=== PATIENT | female | born 1955 | race American Indian/Alaskan Native ===

== ENCOUNTER 2017-02-22 06:34 | Day surgery (SDC) | payer BC, OTHER ==
[~2017-02-22] VITALS: Ht 165.1 cm; Wt 105.2 kg
[~2017-02-22 06:34] MED LIST: ALLOPURINOL300 MG PO; CALCIUM + VITA1 EACH PO; CYCLOBENZAPRINE10 MG PO; HYDROCHLOROTH12.5 MG PO; HYDROCODON-ACE1 EAC8 PO; IBUPROFEN800 MG PO; LORATADINE10 MG PO; MELOXICAM15 MG PO; OMEGA 3 1,0001 EACH PO; OXYBUTYNIN CHLOR5 MG PO; SIMVASTATIN20 MG PO; TELMISARTAN20 MG PO
[2017-02-22] MEDS ORDERED: KLOR-CON 1010 MEQ PO (07:01)
[2017-02-22] MEDS ORDERED: ASPIRIN EC81 MG PO (07:02)
--- NOTE | 2017-02-22 08:02 | NUR ---
02/22/17 0802 Gracia Potter REPORT FROM ABISAI CHAUDHARI.
--- NOTE | 2017-02-22 11:11 | OR ---
[facility] [address] [place], [place] [address] Signed DATE OF OPERATION: 02/22/2017 SURGEON: Michael Weinstein MD PREOPERATIVE DIAGNOSES: 1. Personal history of colonic polyps (2010). 2. Colonic tattoo at 35 cm. 3. Diverticulosis. 4. Internal hemorrhoids. POSTOPERATIVE DIAGNOSES: 1. Minimal sigmoid diverticulosis. 2. Moderate internal hemorrhoids. 3. Melanosis coli. PROCEDURES: Colonoscopy without biopsy. ESTIMATED BLOOD LOSS: None. INDICATIONS: Iris is a 61-year-old female, who has been to us previously for 2 endoscopies. She had a villous adenomatous polyp removed at 35 cm. We consequently left a tattoo at that area. She has also had other adenomatous polyps removed as well. She also has left-sided diverticulosis along with moderate internal hemorrhoids. We had her back in 2011 and everything was fine including the area 35 cm. We asked her to follow up in 5 years. In the meantime, she says she is doing great. She has talked about her rotator cuff repairs and it sounds like she has lost a little weight. There is no family history of colon cancer or polyps. I gave her a booklet on colonoscopy and we looked at that together along with the risks including, but not limited to, gas bloating, crampy abdominal pain, bleeding, perforation, requiring surgery, and missed diagnosis. We also discussed the need for IV conscious sedation. She expressed understanding and wished to proceed. PROCEDURE NOTE: Iris was taken into our endoscopy suite and placed in the left lateral decubitus position. She was given divided doses 8 mg of Versed and 100 mcg of fentanyl. A digital rectal exam was performed and this was unremarkable. The adult colonoscope was introduced and advanced under direct visualization of the camera all the way into the cecum without difficulty. Her prep was quite good. The scope was then slowly withdrawn. She had the classic tiger striping and the colon consistent with melanosis coli. One has to wonder if some of the weight loss was attributed to laxatives. We saw no evidence of any polyps on this occasion. She does have a few diverticula in the sigmoid colon. On this occasion, we looked, but did not find a tattoo at 35 cm. The rectum was Electronically Signed By: MICHAEL WEINSTEIN MD 02/22/17 1111 PATIENT NAME: IRIS MONTALVO OPERATIVE REPORT DATE OF : 53 PHYSICIAN: MICHAEL WEINSTEIN MD REPORT #: [id number] REPORT IS CONFIDENTIAL AND NOT TO BE RELEASED WITHOUT AUTHORIZATION [address] [address] Signed unremarkable. Upon retroflexion of scope, she does have a moderate internal hemorrhoids. After this, the gas was suctioned out and the colonoscope removed. Iris tolerated the procedure quite well. RECOMMENDATIONS: Iris can follow up in 5 years for repeat colonoscopy. If she has used an herbal supplement or oral laxative, she needs to discontinue that because of the melanosis coli. She should switch over to Benefiber and/or MiraLAX. Michael Weinstein MD ALB/MODL /[id number] cc: LEIGHTON Real Electronically Signed By: MICHAEL WEINSTEIN MD 02/22/17 1111 PATIENT NAME: IRIS MONTALVO OPERATIVE REPORT DATE OF : 53 PHYSICIAN: MICHAEL WEISNTEIN MD REPORT #: [id number] REPORT IS CONFIDENTIAL AND NOT TO BE RELEASED WITHOUT AUTHORIZATION
[2017-04-04] MEDS ORDERED: ATORVASTATIN CA10 MG PO (02:14)
[2017-04-04] MEDS ORDERED: OMEPRAZOLE20 MG PO (02:14)
[2017-04-04] MEDS ORDERED: HYDROCHLOROTHIA25 MG PO (02:14)
[2017-04-04] MEDS ORDERED: CEPHALEXIN500 MG PO (02:29)
[2017-04-04] MEDS ORDERED: NORCO 5-325 TA1 EACH PO (02:29)
== END 2017-02-22 08:50 | disposition home or self-care (01) ==
LOC: OPS 06:34 → DS 06:34 → OPS 06:45 → DS 06:45 → OPS 08:50
PROVIDERS: Colon & Rectal Surgery
PROC: 0DJD8ZZ Inspection of Lower Intestinal Tract, Via Natural or Artificial Opening Endoscopic (ICD-10-PCS; principal; 2017-02-22 06:45)
DX: K64.8 Other hemorrhoids (principal); K57.30 Diverticulosis of large intestine without perforation or abscess without bleeding; I10 Essential (primary) hypertension; E78.00 Pure hypercholesterolemia, unspecified; M10.9 Gout, unspecified; E11.9 Type 2 diabetes mellitus without complications; M19.90 Unspecified osteoarthritis, unspecified site; E66.9 Obesity, unspecified; E55.9 Vitamin D deficiency, unspecified; K21.9 Gastro-esophageal reflux disease without esophagitis; J45.909 Unspecified asthma, uncomplicated; Z90.49 Acquired absence of other specified parts of digestive tract; Z86.010 Personal history of colon polyps; Z87.891 Personal history of nicotine dependence; Z88.8 Allergy status to other drugs, medicaments and biological substances; Z79.899 Other long term (current) drug therapy; Z68.38 Body mass index [BMI] 38.0-38.9, adult
CPT/HCPCS: 99152; 99153; J2250; J3010; J7120

== ENCOUNTER → 2017-04-04 | Emergency (ER) | payer BC, OTHER ==
[~2017-04-04] VITALS: Ht 165.1 cm; Wt 104.3 kg
[~2017-04-04] MED LIST changes: +ASPIRIN EC81 MG PO; +ATORVASTATIN CA10 MG PO; +CEPHALEXIN500 MG PO; +HYDROCHLOROTHIA25 MG PO; +KLOR-CON 1010 MEQ PO; +NORCO 5-325 TA1 EACH PO; +OMEPRAZOLE20 MG PO
== END ==
LOC: ED 02:00
DX: H66.92 Otitis media, unspecified, left ear (principal); J98.8 Other specified respiratory disorders; B34.9 Viral infection, unspecified; I10 Essential (primary) hypertension; E78.00 Pure hypercholesterolemia, unspecified; Z88.8 Allergy status to other drugs, medicaments and biological substances; Z79.899 Other long term (current) drug therapy; Z79.82 Long term (current) use of aspirin
CPT/HCPCS: 99283

== ENCOUNTER 2020-04-18 10:11 | Emergency (ER) | payer BC, OTHER ==
[~2020-04-18] VITALS: Ht 165.1 cm; Wt 103.0 kg
== END 2020-04-18 13:11 | disposition home or self-care (01) ==
LOC: ED 10:11
DX: R10.9 Unspecified abdominal pain (principal); M10.9 Gout, unspecified; I10 Essential (primary) hypertension; E78.00 Pure hypercholesterolemia, unspecified; Z88.8 Allergy status to other drugs, medicaments and biological substances; Z79.899 Other long term (current) drug therapy; Z79.82 Long term (current) use of aspirin
CPT/HCPCS: 80053; 81001; 83690; 85025; 96374; 99284-25; J1885; J7030

== ENCOUNTER 2023-12-30 09:50 | Emergency (ER) | payer OTHER, MEDICARE ==
[~2023-12-30] VITALS: Ht 162.6 cm; Wt 96.9 kg
[2023-12-30] MEDS ORDERED: LACTATED RINGER'S 1,000 ML IV ONE (10:00)
[2023-12-30] MEDS ORDERED: ondansetron HCL 4 MG/2 ML VIAL IV ONE (10:00)
[2023-12-30] MEDS ORDERED: HYDROmorphone HCL 1 MG/ML SYR IV ONE (10:00)
[2023-12-30 10:07] LABS: BASOPHILS 0.7 % (0-2); EOSINOPHILS 0.7 % (0-6); HEMATOCRIT 41.8 % (35.0-50.0); HEMOGLOBIN 14.5 g/dL (12.0-18.0); MCH 32.3 (27-36); MCHC 34.6 g/dl (30-36); MCV 93.2 fl (81-99); NEUTROPHILS 53.6 % (39-80); PLATELET COUNT 228 K/uL (140-440); RBC 4.48 M/ul (4.3-5.7); RDW 14.2 (10.5-15.0)
[2023-12-30 10:29] LABS: ALBUMIN 3.7 g/dL (3.4-5.0); ALBUMIN/GLOBULIN RATIO 1.09 (1.1-2.4); ALCOHOL, MEDICAL <3 ng/dL (<3); ALKALINE PHOSPHATASE 84 U/L (46-116); ALT (SGPT) 29 U/L (14-59); ANION GAP 12.3 (7-21); AST (SGOT) 24 U/L (15-37); BILIRUBIN, TOTAL 0.6 ng/dL (0.2-1.0); BUN/CREATININE RATIO 16.47 (6.0-28.6); CALCIUM 9.4 mg/dL (8.5-10.1); CARBON DIOXIDE 28 mmol/L (21-32); CHLORIDE 105 mmol/L (98-107); CREATINE KINASE 148 U/L (26-192); CREATININE, SERUM 0.85 mg/dL (0.55-1.02); GLOMERULAR FILTRATION RATE,EST 74 mL/min (>60); POTASSIUM 3.3 mmol/L (3.5-5.1); PROTEIN, TOTAL 7.1 g/dL (6.4-8.2); UREA NITROGEN 14 mg/dL (7-18)
[2023-12-30 10:36] LABS: ABO B; RH POSITIVE
[2023-12-30 10:37] LABS: ANTIBODY SCREEN NEGATIVE
[2023-12-30] MEDS ORDERED: LORazepam 2 MG/ML VIAL IV ONE (12:00)
--- NOTE | 2023-12-30 12:01 | EKG ---
[facility] [address] [facility] [place] [address] Signed Normal sinus rhythm Right bundle branch block Abnormal ECG No previous ECGs available Confirmed by Rupesh Loera MD ([id number]) on 12/30/2023 12:01:19 PM Electronically Signed By: RUPESH LOERA DO 12/30/23 1201 PATIENT NAME: MADELAINE MONTALVO Electrocardiogram DATE OF : 53 PHYSICIAN: URPESH LOERA DO REPORT #: [id number] REPORT IS CONFIDENTIAL AND NOT TO BE RELEASED WITHOUT AUTHORIZATION
[2023-12-30 12:25] LABS: BILIRUBIN, URINE NEGATIVE (negative); BLOOD/HGB, URINE TRACE-I (Negative); KETONE, URINE NEGATIVE (Negative); LEUK ESTERASE, URINE NEGATIVE (negative); NITRITE, URINE NEGATIVE (negative)
[2023-12-30 12:34] LABS: BACTERIA, URINE NONE SEEN /hpf (negative); CASTS, URINE NONE SEEN \\lpf; COLLECTION TYPE, URINE CLEAN CATCH; CRYSTALS, URINE NONE SEEN (0-1+); EPITHELIAL CELLS, URINE RARE /lpf (0-1+); REFLEX CULTURE, URINE No (No); WHITE BLOOD CELLS, URINE 0-1 /HPF (0-5)
[2023-12-30 12:47] LABS: AMPHETAMINES, URINE NEGATIVE (NEGATIVE); BARBITURATES, URINE NEGATIVE (NEGATIVE); BENZODIAZEPINE, URINE NEGATIVE (NEGATIVE); BUPRENORPHINE, URINE NEGATIVE (NEGATIVE); CANNABINOID, URINE POSITIVE (NEGATIVE); COCAINE, URINE NEGATIVE (NEGATIVE); ECSTASY, URINE NEGATIVE (NEGATIVE); FENTANYL, URINE NEGATIVE (NEGATIVE); METHADONE, URINE NEGATIVE (NEGATIVE); OPIATES, URINE NEGATIVE (NEGATIVE); OXYCODONE, URINE NEGATIVE (NEGATIVE); PHENCYCLIDINE, URINE NEGATIVE (NEGATIVE)
[2023-12-30] MEDS ORDERED: ATIVAN1 MG PO (13:24)
[2023-12-30 13:41] VITALS: BP 149/94
== END 2023-12-30 13:41 | disposition home or self-care (01) ==
LOC: ED 09:50
PROVIDERS: Emergency Medicine
DX: S20.219A Contusion of unspecified front wall of thorax, initial encounter (principal); F41.9 Anxiety disorder, unspecified; I10 Essential (primary) hypertension; V43.52XA Car driver injured in collision with other type car in traffic accident, initial encounter; Z96.651 Presence of right artificial knee joint; Z79.899 Other long term (current) drug therapy; Z79.82 Long term (current) use of aspirin
CPT/HCPCS: 36415; 70450; 71260; 72125; 74177; 80053; 80307; 81001; 82553; 83605; 84484; 85025; 86850; 86900; 86901; 93005; 93010; 99284-25; G0480; J1170; J2060; J2405; J7121; Q9967

== ENCOUNTER 2024-04-25 09:45 | Day surgery (SDC) | payer MEDICARE, OTHER ==
[2024-04-19 11:51] VITALS: BP 110/82
[~2024-04-25] VITALS: Ht 162.6 cm; Wt 89.5 kg
[~2024-04-25 09:45] MED LIST changes: +ATIVAN1 MG PO; +CEFAZOLIN SODIUM 2 GM/20 ML SYR IV SCH; +IBLOOD GLUCOSE TEST STRIP 1 EA TEST VI PRN; +LACTATED RINGER'S 1,000 ML IV SCH; +LIDOCAINE HCL 1% 5 ML SDV INJ ONE; +SLOW FE137 MG PO; +VIT C-ECHINACE1 EACH PO; +ZYRTEC10 M3 PO
[2024-04-25 10:01] VITALS: BP 138/98
[2024-04-25] MEDS ORDERED: CVS VITAMIN C PO (10:07)
[2024-04-25] MEDS ORDERED: propofoL 200 MG/20 ML VIAL ONE (10:46)
[2024-04-25] MEDS ORDERED: OXYMETAZOLINE HCL 30 ML BTL ONE (11:44)
--- NOTE | 2024-04-25 11:52 | NUR ---
1120-PT UPDATED ON SURGERY WAIT TIME. WARM BLANKET PROVIDED. NO OTHER NEEDS AT THIS TIME. CALL LIGHT WITHIN REACH.
--- NOTE | 2024-04-25 12:41 | NUR ---
04/25/24 1241 Cheryl Tracey 1207- PT ARRIVES TO THE PACU WITH AN ORAL AIRWAY IN PLACE ON 10L OF O2 VIA MASK. BREATHING IS EVEN AND UNLABORED. PT REQUIRED SOME ORAL SUCTIONING. LR INFUSING IN HER L WRIST. ALL MONITORS PUT IN PLACE. VSS. PT IS NONREACTIVE TO VERBAL AND TACTILE STIMULI. ABDOMEN IS SOFT AND NONDISTENDED. 1208- PT 02 IS DECREASED TO 6L VIA MASK. PT IS ABLE TO MAINTAIN O2 SATS IN THE HIGH 90S. 1212- PT WAKES AND IS ABLE TO FOLLOW DIRECTIONS. PT OPENS MOUTH AND ORAL AIRWAY IS REMOVED. O2 TURNED OFF AND REMOVED AT THIS TIME. PT READJUSTED IN THE BED AND HOB INCREASED. VSS. 1222- PT WAKES AND DENIES PAIN AND NAUSEA. PT REPORTS BEING COLD AND MORE WARM BLANKETS ARE APPLIED. PT ALSO REQUESTING TISSUES AND THOSE ARE PROVIDED. PT EASILY FALLS BACK TO SLEEP WITH NO APPARENT DISTRESS. 1238-PT WAKES TO VERBAL STIMULI. PLAN OF CARE DISCUSSED. PT IS AGREEABLE.
[2024-04-25 13:03] VITALS: BP 138/86
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
--- NOTE | 2024-04-26 14:59 | PATH ---
[facility] [address] [facility] [place], [place] [address] Signed SPECIMEN(S): A DUODENAL BULB BIOPSY SPECIMEN(S): B ANTRUM/PYLORUS BIOPSY SPECIMEN SOURCE: A. DUODENAL BULB BIOPSY B. ANTRUM/PYLORUS BIOPSY CLINICAL HISTORY: Epigastric pain, hiatal hernia, GERD, HTN, gout, gastritis FINAL PATHOLOGIC DIAGNOSIS: A. Duodenal bulb biopsy: - Benign duodenal mucosa with scant superficial epithelium present. - See comment. B. Antrum/pylorus biopsy: - Antral and proximal duodenal-type mucosa with reactive features and slight chronic inflammation. - Negative for evidence of Helicobacter organisms or significant pathologic duodenal-type epithelial changes. COMMENT: Part A: There is scant duodenal mucosa present. It is not clear if this is an artifact of sampling or a result of superficial epithelial erosion. There is no evidence of atypical epithelial features, however, assessment of villi for villous effacement and increased epithelial lymphocytes cannot be determined based on this sample. Clinical correlation is requested. JaydaVR:janae MICROSCOPIC EXAMINATION: Histologic sections of all submitted blocks are examined by light microscopy. These findings, together with the gross examination, support the pathologic diagnosis. GROSS DESCRIPTION: A. The specimen, labeled and designated "Sylvester, duodenal bulb biopsy," is received in formalin and consists of one fernandez soft tissue fragment, 0.3 cm. Entirely submitted in (A1). B. The specimen, labeled and designated "Sylvester, antrum/pylorus biopsy," is received in formalin and consists of one fernandez soft tissue fragment, 0.2 cm. Entirely submitted in (B1). PATIENT NAME: MADELAINE MONTALVO PATHOLOGY DATE OF : 53 REPORT #: [id number] PHYSICIAN: DARIN FRANKLIN PCP: ELMA RIVAS MD REPORT IS CONFIDENTIAL AND NOT TO BE RELEASED WITHOUT AUTHORIZATION [facility] [address] [place], [place] [address], [place] [address] Signed VB (under the direct supervision of a pathologist) The Gross Description was prepared using a voice recognition system. The report was reviewed for accuracy; however, sound-alike word errors, addition and/or deletions may occur. If there is any question about this report, please contact Client Services. PERFORMING LABORATORY: Technical component was performed by [facility], [address] [place] [address] (CLIA# [id number]). Professional interpretation was performed by [facility], [address] [place] [id number] (CLIA#: [id number]). Diagnostician: Romulo Staton MD Pathologist Electronically Signed 04/26/2024 Copies: ~ PATIENT NAME: MADELAINE MONTALVO PATHOLOGY DATE OF : 53 REPORT #: [id number] PHYSICIAN: [facility] PCP: ELMA RIVAS MD REPORT IS CONFIDENTIAL AND NOT TO BE RELEASED WITHOUT AUTHORIZATION
== END 2024-04-25 13:15 | disposition home or self-care (01) ==
LOC: DS 09:45
PROVIDERS: ATTEND Colon & Rectal Surgery
PROC: 0DB78ZX Excision of Stomach, Pylorus, Via Natural or Artificial Opening Endoscopic, Diagnostic (ICD-10-PCS; 2024-04-25)
PROC: 0DB68ZX Excision of Stomach, Via Natural or Artificial Opening Endoscopic, Diagnostic (ICD-10-PCS; principal; 2024-04-25 10:45)
DX: K29.70 Gastritis, unspecified, without bleeding (principal); K44.9 Diaphragmatic hernia without obstruction or gangrene; K21.9 Gastro-esophageal reflux disease without esophagitis; I10 Essential (primary) hypertension; M10.9 Gout, unspecified; M19.90 Unspecified osteoarthritis, unspecified site; E78.00 Pure hypercholesterolemia, unspecified; Z79.899 Other long term (current) drug therapy
CPT/HCPCS: 00813; 36415; 87077; J0690; J2704; J7121

== ENCOUNTER 2024-04-28 15:18 | Inpatient (IN) | payer OTHER, MEDICARE ==
[~2024-04-28] VITALS: Ht 162.6 cm; Wt 91.3 kg
[~2024-04-28 15:18] MED LIST changes: -CEFAZOLIN SODIUM 2 GM/20 ML SYR IV SCH; +CVS VITAMIN C PO; -IBLOOD GLUCOSE TEST STRIP 1 EA TEST VI PRN; -LACTATED RINGER'S 1,000 ML IV SCH; -LIDOCAINE HCL 1% 5 ML SDV INJ ONE
[2024-04-28] MEDS ORDERED: HYDROmorphone HCL 1 MG/ML SYR IV ONE ×2 (15:45→17:45)
[2024-04-28] MEDS ORDERED: PANTOPRAZOLE SODIUM 40 MG/10 ML VIAL IV ONE (15:45)
[2024-04-28] MEDS ORDERED: SODIUM CHLORIDE 0.9% 1,000 ML IV ONE (15:45)
[2024-04-28] MEDS ORDERED: ondansetron HCL 4 MG/2 ML VIAL IV PRN ×4 (15:45→21:45)
[2024-04-28 15:59] LABS: BASOPHILS 0.4 % (0-2); EOSINOPHILS 0.4 % (0-6); HEMATOCRIT 42.3 % (35.0-50.0); HEMOGLOBIN 14.6 g/dL (12.0-18.0); LYMPHOCYTES 18.2 % (24-44); MCH 31.9 (27-36); MCHC 34.5 g/dl (30-36); MCV 92.6 fl (81-99); MONOCYTES 2.8 % (0-12); NEUTROPHILS 78.2 % (39-80); PLATELET COUNT 187 K/uL (140-440); RBC 4.57 M/ul (4.3-5.7); RDW 13.6 (10.5-15.0)
[2024-04-28 16:16] LABS: ALBUMIN 3.9 g/dL (3.4-5.0); ALBUMIN/GLOBULIN RATIO 1.03 (1.1-2.4); ANION GAP 13.6 (7-21); BILIRUBIN, TOTAL 0.9 ng/dL (0.2-1.0); BUN/CREATININE RATIO 15.47 (6.0-28.6); CALCIUM 9.8 mg/dL (8.5-10.1); CREATININE, SERUM 0.84 mg/dL (0.55-1.02); POTASSIUM 3.6 mmol/L (3.5-5.1); PROTEIN, TOTAL 7.7 g/dL (6.4-8.2)
[2024-04-28] MEDS ORDERED: LORazepam 2 MG/ML VIAL IV ONE (18:00)
[2024-04-28] MEDS ORDERED: LACTATED RINGER'S 1,000 ML IV SCH ×3 (20:15→21:45)
[2024-04-28] MEDS ORDERED: PROCHLORPERAZINE EDISYLATE 10 MG/2 ML VIAL IV PRN ×3 (20:15→21:45)
[2024-04-28] MEDS ORDERED: HYDROmorphone HCL 1 MG/ML SYR IV PRN ×3 (20:15→21:45)
[2024-04-28] MEDS ORDERED: FAMOTIDINE 20 MG/ 2 ML VIAL IV SCH ×3 (21:00→21:36)
[2024-04-29] MEDS ORDERED: LORazepam 2 MG/ML VIAL IV ONE ×2 (06:45)
[2024-04-29] MEDS ORDERED: LIDOCAINE HCL 4% 50 ML BTL TOP ONE (07:00)
--- NOTE | 2024-04-29 08:19 | NUR ---
PATIENT ARRIVED TO MED SURG UNIT VIA STRETCHER. PATIENT AMBULATED TO BATHROOM. VOID IN TOLIET. PATIENT AMBULATED AND TRANSFERED INTO UNIT BED WITH 1 PA STAND BY ASSIST. ORIENTED TO ROOM AND CALL LIGHT WITHIN REACH.
[2024-04-29 08:23] VITALS: BP 149/79
[2024-04-29] MEDS ORDERED: FAMOTIDINE 20 MG/ 2 ML VIAL IV SCH ×2 (09:00)
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
--- NOTE | 2024-04-29 10:20 | NUR ---
PATIENT RESTING IN BED WITH EYES CLOSED. RESPRIATIONS EVEN AND UNLABORED. CALL LIGHT WITHIN REACH.
--- NOTE | 2024-04-29 11:35 | NUR ---
PATIENT RESTING IN BED WITH EYES CLOSED. DENIES ANY NEEDS AT THIS TIME CALL LIGHT WITHIN REACH.
--- NOTE | 2024-04-29 12:14 | NUR ---
PT IN ROOM WITH PATIENT AT THIS TIME.
--- NOTE | 2024-04-29 12:35 | NUR ---
TINTER PHOTOGRAPH STAFF IN ROOM WITH PATIENT AT THIS TIME.
--- NOTE | 2024-04-29 13:36 | NUR ---
PATIENT RESTING IN BED. IV SITE REMAINS PATENT AND WNL. IV FLUIDS INFUSING WITH NO ISSUES OR CONCERNS. PATIENT REPORTS HER ABD PAIN IS A 4/10 AT THIS TIME. SHE IS TOLLERATING CLEAR LIQUIDS AT THIS TIME. NO FURTHER NEEDS. CALL LIGHT WITHIN REACH.
[2024-04-29 14:04] VITALS: BP 123/74
--- NOTE | 2024-04-29 14:10 | NUR ---
PATIENT RESTING IN BED WITH FAMILY IN ROOM. PATIENT DENIES ANY NEEDS AT THIS TIME. CALL LIGHT WITHIN REACH.
--- NOTE | 2024-04-29 15:34 | NUR ---
RN SPOKE WITH MD ELIZALDE WHO ADVISES IT IS OKAY FOR PATIENT TO HAVE JELLO AT THIS TIME AND ADVACE TO FULL LIQUIDS.
--- NOTE | 2024-04-29 16:20 | NUR ---
PATIENT TOLLERATED EATING JELLO WITH NO ISSUES OR CONCERNS.
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
--- NOTE | 2024-04-29 17:45 | NUR ---
MD IN TO SEE PATIENT AT THIS TIME.
--- NOTE | 2024-04-29 18:15 | NUR ---
PATIENT RESTING IN BED WITH EYES CLOSED. RESPIRATIONS EVEN AND UNLABORED. CALL LIGHT WITHIN REACH.
[2024-04-29 18:18] VITALS: BP 143/79
[2024-04-29 19:18] VITALS: BP 143/79
--- NOTE | 2024-04-29 19:49 | NUR ---
Patient in bed resting, eyes closed, respirations even and non labored. Patient has no notable distress. Daughter at bedside. No needs at this time.
[2024-04-29 20:49] VITALS: BP 130/81
[2024-04-29] MEDS ORDERED: LORazepam 2 MG/ML VIAL IV SCH ×2 (21:00)
--- NOTE | 2024-04-29 21:08 | NUR ---
Patient up to void, alert/oriented x3, no acute distress. Patient reports head/throat and abd pain, 4/10. Patient passing flatus, bowel tones active x4 quadraunts, no nausea. Patient reports anxiety-admin scheduled dose of ativan and prn dilaudid 0.5mg iv. Patient denies further needs at this time, call light within reach.
[2024-04-29 21:36] VITALS: BP 130/81
[2024-04-30] VITALS (9 sets, daily range): BP systolic 107–142; BP diastolic 67–85
--- NOTE | 2024-04-30 02:00 | NUR ---
PATIENT CALLED. C/O STOMACH UPSET. SALTIME CRACKERS AND HOT DECAF TEA PROVIDED PER PATIENT. PATIENT SITTING AT THE EDGE OF THE BED. ALARM WAS SET ON FOR SAFETY. PATIENT IS SNACKING.
--- NOTE | 2024-04-30 02:10 | NUR ---
Patient reports nausea. Admin compazine 10mg slow iv push at this time. Patient denies further needs, call light within reach.
--- NOTE | 2024-04-30 05:14 | NUR ---
PT IV FLUIDS ALARMING, COMPLETE BAG, NEW IV FLUIDS BAG HUNG. IV FLUIDS CLEARED. PT RESTING DID NOT AWAKEN WHEN ENTER ROOM DURING CARES. ALLOWED PT TO SLEEP. CALL LIGHT WITHIN REACH.
--- NOTE | 2024-04-30 07:23 | NUR ---
REPORT FROM BINTA MONTOYA RN.
--- NOTE | 2024-04-30 08:14 | NUR ---
Patient has been ambulating hallways. No cares were requested.
--- NOTE | 2024-04-30 08:22 | NUR ---
MORNING ASSESSMENT IS COMPLETE. PATIENT DENIES NAUSEA, GIVEN SCHEDULED IV PEPCID, AND IS SITTING UP IN BED TO HAVE CLEAR LIQUID BREAKFAST. BILATERAL LOWER EXTREMITY 1+ EDEMA IS NOTED AND PATIENT REPORTS THIS IS CHRONIC. LUNGS ARE CLEAR, BOWEL TONES ARE ACTIVE. NO OTHER NEEDS AT THIS TIME.
--- NOTE | 2024-04-30 08:32 | NUR ---
DR. PELAEZ IN TO SEE PATIENT. PATIENT TO BE ADVANCED TO FULL LIQUID DIET. PATIENT DOES HAVE PRODUCTIVE COUGH AND IS AWARE.
--- NOTE | 2024-04-30 08:36 | NUR ---
PATIENT TO HAVE CHEST X-RAY TO R/O PNEUMONIA. PATIENT TO HAVE I/S.
--- NOTE | 2024-04-30 08:39 | NUR ---
PATIENT IS SALINE LOCKED.
--- NOTE | 2024-04-30 08:41 | NUR ---
INCENTIVE SPIROMETER INSTRUCTION TO PATIENT. PATIENT DEMONSTRATES ABILITY TO USE.
[2024-04-30] MEDS ORDERED: CEFTRIAXONE/SODIUM CHLORIDE 2 GM/100 ML PIGGYBACK IV SCH ×2 (09:15)
--- NOTE | 2024-04-30 09:36 | NUR ---
ATTEMPT TO COMPLETE ASSESSMENT. PATIENT DOES NOT WAKE. WILL RETURN LATER TODAY TO SPEAK WITH PATIENT.
--- NOTE | 2024-04-30 09:41 | NUR ---
IV ROCEPHIN INFUSING FOR 30 MINUTES. PATIENT IS SLEEPING WITH REGULAR RESPIRATIONS.
--- NOTE | 2024-04-30 11:11 | NUR ---
PATIENT IS SLEEPING WITH REGULAR RESPIRATIONS. NO NEEDS AT THIS TIME.
--- NOTE | 2024-04-30 11:16 | NUR ---
PATIENT IN BED AT THIS TIME. SPECIAL PROJECTS MANAGER ASSISTED PATIENT TO BATHROOM AND THEN BACK TO BED. CALL LIGHT WITHIN REACH, NO FURTHER NEEDS AT THIS TIME.
--- NOTE | 2024-04-30 11:42 | NUR ---
VISITED DURING SPIRITUAL CARE ROUNDS. PT SUPPORTED BY FAMILY MEMBER IN ROOM, BOTH DENY IMMEDIATE NEEDS. MANAGER POKER PROVIDED SUPPROTIVE PRESENCE, HOSPITALITY, PRAYER, FACILITATED INTERACTION WITH THERAPY ANIMAL. PT AND FAMILY MEMBER EXPRESSED GRATITUDE.
--- NOTE | 2024-04-30 12:38 | NUR ---
PATIENT'S DAUGHTER IN ROOM TO VISIT. PATIENT IS TOLERATING FULL LIQUID DIET WELL, NO NAUSEA, NO COMPLAINTS OF PAIN.
--- NOTE | 2024-04-30 13:13 | NUR ---
PATIENT IS TOLERATING FULL LIQUID DIET WELL. PATIENT UP TO AMBULATE IN HALLWAY WITH DAUGHTER, AD JUD. PATIENT DENIES PAIN OR OTHER NEEDS AT THIS TIME.
--- NOTE | 2024-04-30 13:57 | NUR ---
DR. ELIZALDE IN TO SEE PATIENT.
--- NOTE | 2024-04-30 14:42 | NUR ---
UR CLINICAL REVIEW: 2 MN FOR VERSALUS-MEET INPT CRITERIA FOR PAIN CONTROL MEDICARE OBS 04/01/24 @ 2019. WILL DISCUSS WITH MD ORDER MATCHES REG NO AUTH REQUIRED PER MEDICARE GUIDELINES DISCHARGE TO HOME WHEN STABLE
--- NOTE | 2024-04-30 15:12 | NUR ---
PATIENT UP TO TAKE SHOWER, LINENS CHANGED. PATIENT IS TOLERATING ACTIVITY WELL, NO PAIN OR NAUSEA.
--- NOTE | 2024-04-30 15:33 | NUR ---
ALERT AND ORIENTED, LYING IN BED. STATES SHE LIVES IN SINGLE LEVEL HOME. SHE STATES SHE HAS A WALKER, CANE. DRIVES SELF AT BASELINE. STATES HE HAS NO ISSUES PAYING UTILITIES, OBTAINING FOOD AND MEDICATIONS. STATES SHE NEEDS ASSISTANCE TO CARE FOR HERSELF POST OP AND SHE IS CONSIDERING OBTAINING A CAREGIVER. STATES SHE DOES NOT HAVE MEDICAID. INFORMED PHONE NUMBERS CAN BE PROVIDED FOR FAMILY RESOURCES, BUT IT WOULD BE OUT OF POCKET COST. PATIENT STATES "I WOULD RATHER JUST SIT AT HOME AND SUFFER." CALLED JADA BAPTISTE TO VERIFY IF PATIENT IS ELIGIBLE FOR MEDICAIED. MESSAGE LEFT. PATIENT DOES NOT WANT PHONE NUMBERS FOR CAREGIVERS AT THIS TIME.
--- NOTE | 2024-04-30 18:49 | NUR ---
SBA to bathroom. Patient returned to bed once done. Requested crackers and cheese for a snack.
--- NOTE | 2024-04-30 18:56 | NUR ---
PATIENT IS SITTING UP IN BED, DENIES NEEDS, IS USING I/S CONSISTENTLY.
--- NOTE | 2024-04-30 19:42 | NUR ---
REPORT RECEIVED FROM DAY SHIFT RN. PT LYING IN BED ALERT AND ORIENTED. FRESH WATER PROVIDED. NO FURTHER NEEDS. VISITOR AT BEDSIDE. WHITE BOARD UPDATED. CALL LIGHT IN REACH.
--- NOTE | 2024-04-30 22:29 | NUR ---
EVENING ASSESSMENT COMPLETE. SCHEDULED MEDS ADMIN PER EMAR. PT DENIES PAIN OR NAUSEA. BOWEL TONES ACTIVE. ABD SOFT. PT DENIES SOB. LUNGS CLEAR THROUGHOUT. OCCASIONAL MOIST COUGH NOTED. PT REPORTS OCCASIONAL CLEAR SPUTUM. PT DENIES QUESTIONS OR CONCERNS. CALL LIGHT IN REACH.
[2024-05-01] VITALS (8 sets, daily range): BP systolic 115–150; BP diastolic 49–94
--- NOTE | 2024-05-01 00:19 | NUR ---
PT RESTING IN BED WITH EYES CLOSED. RESPIRATIONS EVEN. CALL LIGHT IN REACH. BED ALARM FOR SAFETY.
--- NOTE | 2024-05-01 00:44 | NUR ---
BED ALARM SOUNDING. PT UP TO BR WITH MINIMAL SBA TO VOID. GAIT STEADY. BACK TO BED, JAVIER WELL. NO FURTHER NEEDS. BED ALARM FOR SAFETY. CALL LIGHT IN REACH.
--- NOTE | 2024-05-01 01:57 | NUR ---
PT IN BED RESTING WITH EYES CLOSED LYING ON LEFT SIDE. RESPIRATIONS EVEN. CALL LIGHT IN REACH. BED ALARM FOR SAFETY.
--- NOTE | 2024-05-01 02:53 | NUR ---
BED ALARM SOUNDING. PT UP TO BR TO VOID. GAIT STEADY. BACK TO BED, JAVIER WELL. ASSESSMENT UNCHANGED. NO FURTHER NEEDS. CALL LIGHT IN REACH.
[2024-05-01 05:32] LABS: BASOPHILS 0.6 % (0-2); HEMATOCRIT 35.5 % (35.0-50.0); HEMOGLOBIN 12.2 g/dL (12.0-18.0); LYMPHOCYTES 33.1 % (24-44); MCH 31.9 (27-36); MCHC 34.4 g/dl (30-36); MCV 92.6 fl (81-99); MONOCYTES 5.8 % (0-12); NEUTROPHILS 58.5 % (39-80); PLATELET COUNT 147 K/uL (140-440); RBC 3.83 M/ul (4.3-5.7); RDW 13.4 (10.5-15.0)
--- NOTE | 2024-05-01 06:30 | NUR ---
PT AWAKE IN BED. UP TO BR TO VOID INDEPENDENTLY. GAIT STEADY. BACK TO BED, JAIVER WELL. VS AND I&O OBTAINED. NO FURTHER NEEDS. CALL LIGHT IN REACH.
--- NOTE | 2024-05-01 08:55 | NUR ---
PATIENT CALLED DUE TO IV BEEPING. RN WAS NOTIFIED. IMAGING CAME TO DO XRAY, PATIENT REFUSED TO LET THEM DO XRAY WHILE IV WAS BEEPING. THIS THREAD WINDER AUTOMATIC IN TO ASK PATIENT TO LET THEM DO THE XRAY THEY ARE HERE NOW AND HAVE OTHER PATIENTS TO SEE AND THAT THE NURSE WOULD BE IN SOON SHE CAN TO CHECK THE IV. PATIENT GOT VERY FRUSTRATED AND RAISED HER VOICE SAYING "I DONT KNOW WHY YOU HAVE TO BE SO RUDE ABOUT THIS." THIS THREAD WINDER AUTOMATIC SAID "IM SORRY I DIDNT MEAN FOR THAT TO BE MEAN WE JUST NEED TO GET THE XRAY DONE BECAUSE THIS IS WHEN THEY CAN DO IT. WILL YOU LET THEM THAT THE XRAY?" PATIENT LOUDLY SAID "I DONT HAVE A CHOICE DO I? JUST DO IT." IMAGING DID XRAY. RN NOTIFED.
[2024-05-01] MEDS ORDERED: FAMOTIDINE 20 MG TAB PO SCH ×2 (09:00)
--- NOTE | 2024-05-01 09:30 | NUR ---
PATIENT ALERT AND ORIENTED IN BED. DISCUSSED MEDICAID WITH PATIENT AND POTENTIAL NEED FOR ELIGIBILITY PERSON, JADA, TO DISCUSS MEDICAID WITH HER. DENIES OTHER CM NEEDS AT THIS TIME.
--- NOTE | 2024-05-01 10:29 | NUR ---
PATIENT SITTING UP IN BED AT THIS TIME. VITALS AND I&O'S DONE AND CHARTED. CALL LIGHT IN REACH. NO FURTHER NEEDS AT THIS TIME.
--- NOTE | 2024-05-01 11:45 | NUR ---
PATIENT UP TO BATHROOM AND BACK TO BED, IND. CALL LIGHT IN REACH. NO FURTHER NEEDS AT THIS TIME.
--- NOTE | 2024-05-01 12:20 | NUR ---
Patient in bed watching tv, no notable distress. Patient reports tolerable pain, no nausea. Pt denies needs at this time. Call light within reach.
--- NOTE | 2024-05-01 13:07 | EKG ---
[facility] [address] [facility] [place] [address] Signed Sinus bradycardia Right bundle branch block Abnormal ECG When compared with ECG of 19-APR-2024 11:55, No significant change was found Confirmed by Dwight Crawford MD ([id number]) on 05/01/2024 1:07:10 PM Electronically Signed By: DWIGHT CRAWFORD MD 05/01/24 1307 PATIENT NAME: SELVINMADELAINERayne WILBURN Electrocardiogram DATE OF : 53 PHYSICIAN: DWIGHT CRAWFORD MD REPORT #: [id number] REPORT IS CONFIDENTIAL AND NOT TO BE RELEASED WITHOUT AUTHORIZATION
--- NOTE | 2024-05-01 13:32 | NUR ---
Patient awake eating lunch, no distress. Patient denies nausea. Vitals signs are stable. Dinner ordered for patient. Patient denies further needs. Personal supplies and call light within reach.
--- NOTE | 2024-05-01 15:57 | NUR ---
Patient has walked in hallway several times today, tolerates ambulation well. Patient reports tolerating her diet well, no nausea.
[2024-05-01] MEDS ORDERED: allopurinoL 300 MG TAB PO SCH ×2 (18:12)
[2024-05-01] MEDS ORDERED: ATORVASTATIN 10 MG TAB PO SCH ×2 (18:13)
[2024-05-01] MEDS ORDERED: hydroCHLOROthiazide 25 MG TAB PO SCH ×2 (18:13)
--- NOTE | 2024-05-01 19:41 | NUR ---
REPORT RECEIVED FROM DAY SHIFT RN. PT LYING IN BED ALERT AND ORIENTED. DENIES NEEDS. WHITE BOARD UPDATED. CALL LIGHT IN REACH.
--- NOTE | 2024-05-01 21:51 | NUR ---
EVENING ASSESSMENT COMPLETE. SCHEDULED MEDS ADMIN PER EMAR. PT DENIES PAIN OR NAUSEA. BOWEL TONES ACTIVE. ABD SOFT. APPLE JUICE PROVIDED PER REQUEST. PT DENIES QUESTIONS OR CONCERNS. CALL LIGHT IN REACH. BED ALARM FOR SAFETY.
--- NOTE | 2024-05-01 23:49 | NUR ---
PT IN BED ON CELL PHONE. NO NEEDS AT THIS TIME. CALL LIGHT IN REACH.
--- NOTE | 2024-05-02 01:44 | NUR ---
PT AWAKE IN BED. REPORTS URGENCY WITH URINATION AND SOME INCONTINENCE. DENIES PAIN/BURNING WITH URINATION. URINE CLEAR YELLOW, NO FOUL ODOR NOTED. OFFERED INCONTINENCE SUPPLIES, PT REFUSED. NO FURTHER NEEDS. CALL LIGHT IN REACH.
--- NOTE | 2024-05-02 03:19 | NUR ---
PT IN BED RESTING WITH EYES CLOSED. RESPIRATIONS EVEN. CALL LIGHT IN REACH.
--- NOTE | 2024-05-02 06:32 | NUR ---
PT RESTING ON RIGHT SIDE IN BED WITH EYES CLOSED. RESPIRATIONS EVEN. SpO2 98% ON RA. NO DISTRESS NOTED. BP HELD TO ALLOW FOR REST. I&O OBTAINED. CALL LIGHT IN REACH.
--- NOTE | 2024-05-02 09:00 | NUR ---
IV was wrapped and taped so the patient could shower before breakfast. Bed linens were changed and a clean gown was provided. Patient only required setup assistance for shower. Extra soap was provided.
--- NOTE | 2024-05-02 09:33 | NUR ---
SPOKE WITH PATIENT. SHE IS DRESSED IN STREET [employer] AND STATES SHE IS PLANNING TO DC TO HOME TODAY. NO CM NEEDS AT THIS TIME.
[2024-05-02 09:58] VITALS: BP 136/99
== END 2024-05-02 10:15 | disposition home or self-care (01) | DRG 391 ==
LOC: ED 15:18 → MS 20:20
PROVIDERS: Emergency Medicine; ADMIT Transplant Surgery; ATTEND Transplant Surgery
PROC: 0D9670Z Drainage of Stomach with Drainage Device, Via Natural or Artificial Opening (ICD-10-PCS; principal; 2024-04-30)
DX: K44.9 Diaphragmatic hernia without obstruction or gangrene (principal); J18.9 Pneumonia, unspecified organism; J69.0 Pneumonitis due to inhalation of food and vomit; I10 Essential (primary) hypertension; M10.9 Gout, unspecified; M19.90 Unspecified osteoarthritis, unspecified site; Z96.651 Presence of right artificial knee joint; F41.9 Anxiety disorder, unspecified; H66.92 Otitis media, unspecified, left ear; B34.9 Viral infection, unspecified; Z90.49 Acquired absence of other specified parts of digestive tract; Z98.890 Other specified postprocedural states; S20.219D Contusion of unspecified front wall of thorax, subsequent encounter; Z79.899 Other long term (current) drug therapy; V89.0XXD Person injured in unspecified motor-vehicle accident, nontraffic, subsequent encounter
CPT/HCPCS: 36415; 71045; 74176; 80053; 83690; 84484; 85025; 93005; 93010; 96361; 96365; 96375; 96376; G0378; J0696; J0780; J1171; J2060; J2405; J2470; J7030; J7121

== ENCOUNTER 2024-06-24 19:19 | Emergency (ER) | payer MEDICARE, OTHER ==
[~2024-06-24] VITALS: Ht 162.6 cm; Wt 92.1 kg
[2024-06-24 23:33] VITALS: BP 115/84
== END 2024-06-24 23:33 | disposition home or self-care (01) ==
LOC: ED 19:19
DX: S02.2XXA Fracture of nasal bones, initial encounter for closed fracture (principal); S80.02XA Contusion of left knee, initial encounter; S80.11XA Contusion of right lower leg, initial encounter; I10 Essential (primary) hypertension; E78.00 Pure hypercholesterolemia, unspecified; M10.9 Gout, unspecified; Z79.899 Other long term (current) drug therapy; W18.09XA Striking against other object with subsequent fall, initial encounter
CPT/HCPCS: 70160; 73560; 99283